=== PATIENT | female | born 1950 | race African-American/Black ===

== ENCOUNTER 2024-06-22 15:17 | Inpatient (IN) | payer OTHER, MEDICAID, MEDICARE ==
[~2024-06-22] VITALS: Ht 165.1 cm; Wt 105.2 kg
[2024-06-22] MEDS: SODIUM CHLORIDE 0.9% 500 ML IV ONE (16:35)
[2024-06-22 16:44] LABS: CARBON DIOXIDE 19 mEq/L (21-32); CHLORIDE 96 mEq/L (98-107); HEMATOCRIT. 23.1 % (36.0-48.0); MEAN CORPUSCULAR HEMOGLOBIN 32.1 pg (28.0-32.0); MEAN CORPUSCULAR HGB CONC 34.6 g/dL (31.0-37.0); MEAN CORPUSCULAR VOLUME 92.7 fL (81.0-99.0); MEAN PLATELET VOLUME 8.3 fl (7.4-10.4); PLATELET 84 x1000/uL (130-400); POTASSIUM 4.5 mEq/L (3.5-5.1); RED BLOOD CELL COUNT 2.49 mill/uL (4.2-5.4); RED CELL DISTRIBUTION WIDTH 20.1 % (11.6-14.6); SODIUM 132 mEq/L (136-145); WHITE BLOOD COUNT 8.5 x1000/uL (4.5-11.0)
[2024-06-22 16:45] LABS: CALCIUM 9.1 mg/dL (8.7-10.4)
[2024-06-22 16:50] LABS: GLUCOSE 69 mg/dL (70-105)
[2024-06-22 16:52] LABS: PHOSPHORUS 7.4 mg/dL (2.5-4.9)
[2024-06-22 16:55] LABS: DIFFERENTIAL COMMENT 1
[2024-06-22 17:04] LABS: UREA NITROGEN BLOOD 143 mg/dL (9-23)
[2024-06-22 17:05] LABS: CREATININE 8.7 mg/dL (0.6-1.0)
[2024-06-22 17:07] LABS: INR 1.3; PROTHROMBIN TIME 13.2 sec (9.6-11.0)
[2024-06-22 17:25] LABS: HYPOCHROMASIA 1+; MICROCYTOSIS 2+; PLATELET ESTIMATE DECREASED; TARGET CELLS 2+
[2024-06-22 18:55] VITALS: BP 90/37; PULSE 65; RESP 18; TEMP 36.4; O2SAT 100
[2024-06-22 20:00] VITALS: BP 99/47; PULSE 62; RESP 19; TEMP 36.4; O2SAT 99
[2024-06-22 21:30] VITALS: BP 99/47; PULSE 62; RESP 19; TEMP 36.4; O2SAT 99
[2024-06-22 22:15] VITALS: BP 105/69; PULSE 72; RESP 19; TEMP 36.4
[2024-06-23] VITALS (12 sets, daily range): BP systolic 83–110; BP diastolic 33–56; PULSE 59–77; RESP 17–20; TEMP 36.1–36.5; O2SAT 20–100
[2024-06-23] MEDS: MIDODRINE HCL 5MG TABLET PO SCH (01:15)
[2024-06-23] MEDS: PANTOPRAZOLE 40MG DR TABLET PO SCH (07:10)
[2024-06-23] MEDS: APIXABAN 2.5 MG TABLET PO SCH (09:56)
[2024-06-23 12:59] LABS: TROPONIN I HIGH SENSITIVITY 36 ng/L (3.0-34)
[2024-06-23] MEDS ORDERED: APIX2.5T MT (14:32)
[2024-06-23] MEDS ORDERED: MONT-39 MT (14:32)
[2024-06-23] MEDS ORDERED: ATOR20TA65 MT (14:32)
[2024-06-23] MEDS ORDERED: MIDO5TAB4 MT (14:32)
[2024-06-23] MEDS ORDERED: FURO40TA5 MT (14:32)
[2024-06-23] MEDS ORDERED: ALBU90AE INH (14:32)
[2024-06-23] MEDS ORDERED: CETI-341 PO (14:32)
[2024-06-23] MEDS ORDERED: MECL-299 MT (14:32)
[2024-06-23] MEDS ORDERED: DIPH25TA23 MT (14:32)
[2024-06-23] MEDS ORDERED: POTA-204 MT (14:34)
[2024-06-23] MEDS: ATORVASTATIN CALCIUM 20MG TABLET PO SCH (21:00)
[2024-06-24] VITALS (14 sets, daily range): BP systolic 81–106; BP diastolic 23–60; PULSE 58–92; RESP 16–24; TEMP 36.3–36.7; O2SAT 94–100
[2024-06-24] MEDS: IPRATROPIUM/ALBUTEROL 0.5-3(2.5)MG/3ML NEB HHN SCH (01:34)
[2024-06-24 02:55] LABS: TROPONIN I HIGH SENSITIVITY 34 ng/L (3.0-34)
[2024-06-24] MEDS: MIDODRINE HCL 5MG TABLET PO NR (18:56)
[2024-06-25] VITALS (11 sets, daily range): BP systolic 90–110; BP diastolic 43–80; PULSE 63–104; RESP 18–22; TEMP 36.2–36.6696; O2SAT 93–100
[2024-06-25] MEDS ORDERED: MIDO10TA3 MT (05:57)
== END 2024-06-25 11:55 | disposition home or self-care (01) | DRG 291 ==
LOC: ER 15:17 → EDBEDREQ 17:16 → EDBEDREQTM 17:16 → 8WST 18:34
PROVIDERS: ADMIT Internal Medicine; ATTEND Internal Medicine
PROC: 5A1D70Z Performance of Urinary Filtration, Intermittent, Less than 6 Hours Per Day (ICD-10-PCS; principal; 2024-06-23)
PROC: 5A1D70Z Performance of Urinary Filtration, Intermittent, Less than 6 Hours Per Day (ICD-10-PCS; 2024-06-24)
PROC: 5A1D70Z Performance of Urinary Filtration, Intermittent, Less than 6 Hours Per Day (ICD-10-PCS; 2024-06-25)
DX: I13.2 Hypertensive heart and chronic kidney disease with heart failure and with stage 5 chronic kidney disease, or end stage renal disease (principal); N18.6 End stage renal disease; N17.9 Acute kidney failure, unspecified; I95.9 Hypotension, unspecified; K21.9 Gastro-esophageal reflux disease without esophagitis; E11.22 Type 2 diabetes mellitus with diabetic chronic kidney disease; I50.9 Heart failure, unspecified; J44.9 Chronic obstructive pulmonary disease, unspecified; G47.33 Obstructive sleep apnea (adult) (pediatric); I27.20 Pulmonary hypertension, unspecified; Z91.158 Patient's noncompliance with renal dialysis for other reason; Z88.0 Allergy status to penicillin; Z95.2 Presence of prosthetic heart valve; Z99.2 Dependence on renal dialysis; D63.8 Anemia in other chronic diseases classified elsewhere
CPT/HCPCS: 36415; 80048; 83735; 84100; 84484; 85025; 90935; 94070; 94640; 94760; 98960; 99285; A4606; J7030